=== PATIENT | male | born 1960 ===

== ENCOUNTER 2016-10-10 13:45 | Emergency (ER) | payer MEDICARE ==
[2016-10-10 14:12] VITALS: BP 140/96
--- NOTE | 2016-10-10 15:25 | UC ---
I, Oh,Sotero, scribed for Cyn Ramos DO on 10/10/16 at 1434 . Abdominal Pain Male HPI - HPI Summary HPI Summary: This 56 y/o male presents to [facility] for gradually worsening RLQ since yesterday PM. Pt reports 2 episodes of mild diarrhea this morning, but denies any fever, chills, n/v, eye goops, any congestion, or dyusria. Pt also reports dark urine, but states that he drinks a lot of caffeinated drinks on daily basis and usually has dark urine. Deep breath makes the pain worse. Bumpy car ride makes the pain worse. Pt is chronic current smoker since 14 year of age. PMHx includes COPD. PSHx includes knee surgeries. Plan of care involving transfer to [facility] and further workup to r/o appendicitis is discussed with pt, and pt is agreeable at this time. He doesn't have his own ride at this moment, and accepts the ambulance transport. - History of Current Complaint Chief Complaint: UCAbdominalPain Stated Complaint: ABD PAIN Time Seen by Provider: 10/10/16 14:20 Hx Obtained From: Patient, Medical Records Onset/Duration: Gradual Onset, Still Present Timing: Constant Severity Initially: Mild Severity Currently: Moderate Pain Intensity: 5 Location: Discrete At: RLQ - and umbilical Radiates: No Character: Sharp Aggravating Factor(s):: Deep Breaths - also bumpy car ride, foot fall Alleviating Factor(s): Nothing Associated Signs And Symptoms: Positive: Diarrhea - mild episodes x2 this morning. Negative: Fever, Cough, Back Pain, Constipation, Nausea, Vomiting - Allergies/Home Medications Allergies/Adverse Reactions: Allergies Allergy/AdvReac Type Severity Reaction Status Date / Time STORE BOUGHT FISH Allergy Severe Hives Uncoded 08/19/16 13:14 PMH/Surg Hx/FS Hx/Imm Hx Endocrine History Of: Denies: Diabetes, Dyslipidemia Cardiovascular History Of: Denies: Hypertension, Congestive Heart Failure Respiratory History Of: Reports: COPD - No medications. Denies: Asthma GI/ History Of: Denies: Gastroesophageal Reflux, Gastrointestinal Bleed, Gall Bladder Disease , Kidney Stones, Diverticulitis, Renal Disease, Urosepsis Psychological History Of: Denies: Anxiety, Depression, Bipolar Disorder Cancer History Of: Denies: Lung Cancer, Colorectal Cancer, Prostate Cancer Other History Of: Negative For: HIV, Hepatitis C - Surgical History Surgical History: Yes Surgery Procedure, Year, and Place: BILAT KNEE SURGERIES, CYST REMOVED FROM FINGER - Family History Known Family History: Positive: Hypertension Negative: Cardiac Disease - Social History Alcohol Use: None Substance Use Type: None Smoking Status (MU): Current Every Day Smoker Type: Cigarettes Amount Used/How Often: 1ppd Length of Time of Smoking/Using Tobacco: 45 years Have You Smoked in the Last Year: Yes Cessation Counseling: Patient Advised to Stop Review of Systems Constitutional: Negative Skin: Negative Eyes: Negative ENT: Negative Respiratory: Negative Cardiovascular: Negative Gastrointestinal: Abdominal Pain, Diarrhea - mild x2 this morning Motor: Negative Neurovascular: Negative Musculoskeletal: Negative Neurological: Negative Psychological: Negative All Other Systems Reviewed And Are Negative: Yes Physical Exam Triage Information Reviewed: Yes Appearance: Well-Appearing, Well-Nourished, Pain Distress - mod to severe Vital Signs: Initial Vital Signs Temp 99.8 F 10/10/16 14:04 Pulse 104 10/10/16 14:04 Resp 18 10/10/16 14:04 BP 140/96 10/10/16 14:04 Pulse Ox 100 10/10/16 14:04 Vital Signs Reviewed: Yes Eyes: Positive: Conjunctiva Clear. Negative: Discharge ENT: Positive: Hearing grossly normal Neck exam: Normal Neck: Positive: Supple Respiratory: Positive: Lungs clear, Normal breath sounds, No respiratory distress, No accessory muscle use Cardiovascular: Positive: RRR, No Murmur Abdomen Description: Positive: Distended - mild, Guarding, McBurney's Point Tenderness, Peritoneal Signs, Other: - Positive rebound. Positive for equisite tenderness at umbilical and RLQ.. Negative: CVA Tenderness (R), CVA Tenderness (L) Musculoskeletal: Positive: Strength Intact Neurological: Positive: Alert, Muscle Tone Normal Psychological: Positive: Age Appropriate Behavior Skin Exam: Normal, Other - color normal Abd Pain Male Course/Dx - Differential Dx/Clinical Impression Differential Diagnosis/HQI/PQRI: Appendicitis, Gall Bladder Disease, Renal Colic , Ureteral Stone, Urinary Tract Infection Provider Diagnoses: abd pain r/o appy - Physician Notification/Consults Discussed Patient Care With: Dr. Thomas (ERP at [facility]) at 1433 -- physical exam findings are shared. Dr. Thomas accepts the transfer. Time Discussed With Above Provider: 14:33 Instructed by Provider To: Transfer - to [place] [facility] Discharge - Discharge Plan Condition: Stable Disposition: TRANS HIGHER LVL OF CARE FAC Referrals: Non Staff,Doctor [Primary Care Provider] - The documentation as recorded by the Carter muñiz Soohyun accurately reflects the service I personally performed and the decisions made by , Cyn Ramos DO.
== END 2016-10-10 15:10 | disposition short-term general hospital (02) ==
LOC: UCEAST 13:45
DX: R10.31 Right lower quadrant pain (principal); F17.290 Nicotine dependence, other tobacco product, uncomplicated
CPT/HCPCS: 99213; G0463

== ENCOUNTER 2016-10-10 15:27 | Emergency (ER) | payer MEDICARE ==
[2016-10-10] MEDS ORDERED: HYDROmorphone INJ* 1 MG/ML CARPUJECT SYRINGE IV ONE (16:31)
[2016-10-10] MEDS ORDERED: Ondansetron INJ* 2 MG/ML VIAL IV ONE (16:31)
[2016-10-10 16:48] LABS: Hematocrit 49 % (42-52); Hemoglobin 16.1 g/dl (14.0-18.0); Mean Corpuscular HGB Conc 33 g/dl (31-36); Mean Corpuscular Hemoglobin 28 pg (27-31); Mean Corpuscular Volume 86 fL (80-94); Mean Platelet Volume 8 um3 (7.4-10.4); Red Blood Count 5.71 10^6/ul (4.0-5.4); Red Cell Distribution Width 14 % (10.5-15); White Blood Count 12.7 10^3/ul (3.5-10.8)
[2016-10-10 16:59] LABS: Albumin 4.4 g/dL (3.2-5.2); BUN/Creatinine Ratio 9.3 (8-20); C Reactive Protein 4.7 mg/L (< 5.00); Calcium 9.7 mg/dL (8.6-10.3); EGFR African American 90.6 (>60); EGFR Non-African American 70.5 (>60); Globulin 3.4 g/dL (2-4); Potassium 3.8 mmol/L (3.5-5.0); Total Bilirubin 0.5 mg/dL (0.2-1.0); Total Protein 7.8 g/dL (6.4-8.9)
[2016-10-10] MEDS ORDERED: Iohexol 300* (CONTRAST) 10 ML SDV IV ONE (17:42)
--- NOTE | 2016-10-10 19:13 | RAD ---
CLINICAL HISTORY: Right lower quadrant pain COMPARISON: None TECHNIQUE: Multiple contiguous axial CT scans were obtained of the abdomen and pelvis after the administration of intravenous contrast. Coronal and sagittal multiplanar reformations are submitted for review. Oral contrast was administered. Delayed images were obtained through the abdomen FINDINGS: LUNG BASES: There is dependent atelectasis of the lung bases. LIVER: The liver is diffusely low in attenuation compared to the spleen. There are no focal hepatic parenchymal masses. BILE DUCTS: There is no intrahepatic or extrahepatic biliary dilatation. GALLBLADDER: The gallbladder is normal, without pericholecystic inflammatory change. PANCREAS: The pancreas is normal, without mass or ductal dilatation. SPLEEN: Normal in size and appearance. UPPER GI TRACT: Evaluation of the gastrointestinal tract is limited by incomplete gastric distention. The upper GI tract is unremarkable. SMALL BOWEL AND MESENTERY: The small bowel is normal in contour, course, and caliber. There is no obstruction or dilatation. COLON: The colon is normal in contour, course, caliber. There is no pericolonic inflammatory change. There is a tubular, vermiform, hollow viscus that is blind ending, and originates from the cecum, consistent with a normal appendix. There is no periappendiceal inflammatory change. This is best seen on images 96 through 120 ADRENALS: Normal bilaterally. KIDNEYS: The kidneys are normal in shape, size, contour, and axis. There is no hydronephrosis or nephrolithiasis. BLADDER: The bladder is smooth in contour. PELVIC ORGANS: The prostate gland is normal. The seminal vesicles are symmetric. AORTA: The aorta is normal. IVC: Unremarkable LYMPH NODES: There is no lymphadenopathy by size criteria. ABDOMINAL WALL: There is no evidence for abdominal wall hernia. BONES AND SOFT TISSUES: There is unilateral pars defect on the right at L5. Mild degenerative changes are noted. OTHER: None IMPRESSION: 1. FATTY LIVER. 2. NORMAL APPENDIX. 3. 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
[2016-10-10 19:56] LABS: Urine Bacteria Absent (Absent); Urine Bilirubin Negative (Negative); Urine Glucose Negative (Negative); Urine Nitrite Negative (Negative)
[2016-10-10 20:32] VITALS: BP 142/92
--- NOTE | 2016-10-10 21:19 | ED ---
Steve Pino Matthew, scribed for Niko Foy MD on 10/10/16 at 1618 . Abdominal Pain/Male - HPI Summary HPI Summary: A 56 y/o male presents to the ED from [facility] for gradually worsening, constant, RLQ abdominal pain since yesterday. The pain is worse with movement, coughing, sneezing. Associated symptoms include diarrhea. The patient denies decreased appetite, nausea, urinary symptoms, and dysuria. SHx of bilateral knee replacement. - History of Current Complaint Stated Complaint: ABD PAIN Time Seen by Provider: 10/10/16 15:59 Hx Obtained From: Patient Onset/Duration: Gradual Onset, Lasting Hours, Still Present Timing: Constant Severity Initially: Moderate Severity Currently: Moderate Location: Discrete At: RLQ Radiates: No Aggravating Factor(s): Movement Alleviating Factor(s): Nothing Associated Signs And Symptoms: Positive: Diarrhea. Negative: Urinary Symptoms, Decreased Appetite, Nausea - Allergies/Home Medications Allergies/Adverse Reactions: Allergies Allergy/AdvReac Type Severity Reaction Status Date / Time STORE BOUGHT FISH Allergy Severe Hives Uncoded 08/19/16 13:14 PMH/Surg Hx/FS Hx/Imm Hx Endocrine/Hematology History: Denies: Hx Anticoagulant Therapy, Hx Diabetes, Hx Thyroid Disease Cardiovascular History: Denies: Hx Congestive Heart Failure, Hx Deep Vein Thrombosis, Hx Hypertension , Hx Myocardial Infarction, Hx Pacemaker/ICD Respiratory History: Reports: Hx Chronic Obstructive Pulmonary Disease (COPD) - No medications., Other Respiratory Problems/Disorders - COPD Denies: Hx Asthma, Hx Lung Cancer, Hx Pneumonia, Hx Pulmonary Embolism GI History: Denies: Hx Gall Bladder Disease, Hx Gastrointestinal Bleed, Hx Ulcer, Hx Urosepsis History: Denies: Hx Kidney Stones, Hx Renal Disease Neurological History: Denies: Hx Dementia, Hx Migraine, Hx Seizures, Hx Transient Ischemic Attacks (TIA) Psychiatric History: Denies: Hx Anxiety, Hx Depression, Hx Schizophrenia, Hx Bipolar Disorder - Surgical History Surgery Procedure, Year, and Place: BILAT KNEE SURGERIES, CYST REMOVED FROM FINGER Infectious Disease History: Denies: Traveled Outside the [place] in Last 30 Days - Family History Known Family History: Positive: Hypertension Negative: Cardiac Disease - Social History Alcohol Use: None Substance Use Type: Reports: None Smoking Status (MU): Current Every Day Smoker Type: Cigarettes Amount Used/How Often: 1ppd Length of Time of Smoking/Using Tobacco: 45 years Have You Smoked in the Last Year: Yes Review of Systems Constitutional: Negative Eyes: Negative ENT: Negative Cardiovascular: Negative Respiratory: Negative Positive: Abdominal Pain - RLQ, Diarrhea. Negative: Nausea Genitourinary: Negative Musculoskeletal: Negative Skin: Negative Neurological: Negative Psychological: Normal All Other Systems Reviewed And Are Negative: Yes Physical Exam Triage Information Reviewed: Yes Vital Signs On Initial Exam: Initial Vitals Temp Pulse Resp BP Pulse Ox 98.7 F 76 16 135/81 96 10/10/16 16:14 10/10/16 16:14 10/10/16 16:14 10/10/16 16:14 10/10/16 16:14 Vital Signs Reviewed: Yes Appearance: Positive: Pain Distress Skin: Positive: Warm, Skin Color Reflects Adequate Perfusion, Dry Head/Face: Positive: Normal Head/Face Inspection Eyes: Positive: Normal ENT: Positive: Normal ENT inspection Neck: Positive: Supple, Nontender Respiratory/Lung Sounds: Positive: Clear to Auscultation, Breath Sounds Present Cardiovascular: Positive: RRR Abdomen Description: Positive: Soft, McBurney's Point Tenderness, Other: - Mild rebound referred to the RLQ Bowel Sounds: Positive: Present Musculoskeletal: Positive: Normal Neurological: Positive: Normal Psychiatric: Positive: Normal, Affect/Mood Appropriate Diagnostics - Vital Signs Vital Signs Temp Pulse Resp BP Pulse Ox 10/10/16 20:30 97.8 F 74 16 142/92 10/10/16 18:00 56 119/78 94 10/10/16 17:30 68 122/92 94 10/10/16 17:00 66 114/79 95 10/10/16 16:36 18 10/10/16 16:30 98.7 F 70 16 123/85 95 10/10/16 16:24 67 94 10/10/16 16:14 98.7 F 76 16 135/81 96 - Laboratory Lab Results: Lab Results 10/10/16 10/10/16 10/10/16 Range/Units 16:26 16:26 16:26 WBC 12.7 H (3.5-10.8) 10^3/ul RBC 5.71 H (4.0-5.4) 10^6/ul Hgb 16.1 (14.0-18.0) g/dl Hct 49 (42-52) % MCV 86 (80-94) fL MCH 28 (27-31) pg MCHC 33 (31-36) g/dl RDW 14 (10.5-15) % Plt Count 270 (150-450) 10^3/ul MPV 8 (7.4-10.4) um3 Neut % (Auto) 66.3 (38-83) % Lymph % (Auto) 24.5 L (25-47) % Rains % (Auto) 6.7 (1-9) % Eos % (Auto) 1.3 (0-6) % Baso % (Auto) 1.2 (0-2) % Absolute Neuts (auto) 8.4 H (1.5-7.7) 10^3/ul Absolute Lymphs (auto) 3.1 (1.0-4.8) 10^3/ul Absolute Monos (auto) 0.8 (0-0.8) 10^3/ul Absolute Eos (auto) 0.2 (0-0.6) 10^3/ul Absolute Basos (auto) 0.2 (0-0.2) 10^3/ul Absolute Nucleated RBC 0.01 10^3/ul Nucleated RBC % 0.1 Sodium 137 (133-145) mmol/L Potassium 3.8 (3.5-5.0) mmol/L Chloride 105 (101-111) mmol/L Carbon Dioxide 25 (22-32) mmol/L Anion Gap 7 (2-11) mmol/L BUN 10 (6-24) mg/dL Creatinine 1.08 (0.67-1.17) mg/dL Est GFR ( Amer) 90.6 (>60) Est GFR (Non-Af Amer) 70.5 (>60) BUN/Creatinine Ratio 9.3 (8-20) Glucose 92 (70-100) mg/dL Lactic Acid 0.8 (0.5-2.0) mmol/L Calcium 9.7 (8.6-10.3) mg/dL Total Bilirubin 0.50 (0.2-1.0) mg/dL AST 18 (13-39) U/L ALT 29 (7-52) U/L Alkaline Phosphatase 69 (34-104) U/L C-Reactive Protein 4.70 (< 5.00) mg/L Total Protein 7.8 (6.4-8.9) g/dL Albumin 4.4 (3.2-5.2) g/dL Globulin 3.4 (2-4) g/dL Albumin/Globulin Ratio 1.3 (1-3) Lipase 56 (11.0-82.0) U/L Urine Color Urine Appearance Urine pH (5-9) Ur Specific Baldwin (1.010-1.030) Urine Protein (Negative) Urine Ketones (Negative) Urine Blood (Negative) Urine Nitrate (Negative) Urine Bilirubin (Negative) Urine Urobilinogen (Negative) Ur Leukocyte Esterase (Negative) Urine WBC (Auto) (Absent) Urine RBC (Auto) (Absent) Ur Squamous Epith Cells (Absent) Urine Bacteria (Absent) Urine Glucose (Negative) Urine Ascorbic Acid (Negative) 10/10/16 Range/Units 19:30 WBC (3.5-10.8) 10^3/ul RBC (4.0-5.4) 10^6/ul Hgb (14.0-18.0) g/dl Hct (42-52) % MCV (80-94) fL MCH (27-31) pg MCHC (31-36) g/dl RDW (10.5-15) % Plt Count (150-450) 10^3/ul MPV (7.4-10.4) um3 Neut % (Auto) (38-83) % Lymph % (Auto) (25-47) % Rains % (Auto) (1-9) % Eos % (Auto) (0-6) % Baso % (Auto) (0-2) % Absolute Neuts (auto) (1.5-7.7) 10^3/ul Absolute Lymphs (auto) (1.0-4.8) 10^3/ul Absolute Monos (auto) (0-0.8) 10^3/ul Absolute Eos (auto) (0-0.6) 10^3/ul Absolute Basos (auto) (0-0.2) 10^3/ul Absolute Nucleated RBC 10^3/ul Nucleated RBC % Sodium (133-145) mmol/L Potassium (3.5-5.0) mmol/L Chloride (101-111) mmol/L Carbon Dioxide (22-32) mmol/L Anion Gap (2-11) mmol/L BUN (6-24) mg/dL Creatinine (0.67-1.17) mg/dL Est GFR ( Amer) (>60) Est GFR (Non-Af Amer) (>60) BUN/Creatinine Ratio (8-20) Glucose (70-100) mg/dL Lactic Acid (0.5-2.0) mmol/L Calcium (8.6-10.3) mg/dL Total Bilirubin (0.2-1.0) mg/dL AST (13-39) U/L ALT (7-52) U/L Alkaline Phosphatase (34-104) U/L C-Reactive Protein (< 5.00) mg/L Total Protein (6.4-8.9) g/dL Albumin (3.2-5.2) g/dL Globulin (2-4) g/dL Albumin/Globulin Ratio (1-3) Lipase (11.0-82.0) U/L Urine Color Yellow Urine Appearance Clear Urine pH 5.0 (5-9) Ur Specific Baldwin > 1.060 H (1.010-1.030) Urine Protein Negative (Negative) Urine Ketones Negative (Negative) Urine Blood Negative (Negative) Urine Nitrate Negative (Negative) Urine Bilirubin Negative (Negative) Urine Urobilinogen Negative (Negative) Ur Leukocyte Esterase 3+ H (Negative) Urine WBC (Auto) 2+(11-20/hpf) H (Absent) Urine RBC (Auto) 2+(6-10/hpf) H (Absent) Ur Squamous Epith Cells Present H (Absent) Urine Bacteria Absent (Absent) Urine Glucose Negative (Negative) Urine Ascorbic Acid * H (Negative) Result Diagrams: 10/10/16 16:26 10/10/16 16:26 Lab Statement: Any lab studies that have been ordered have been reviewed, and results considered in the medical decision making process. - CT A/P CT CT Interpretation: No Acute Changes - IMPRESSION: 1. FATTY LIVER. 2. NORMAL APPENDIX. 3. 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 It was aggravated by hitting bumps in the car. He was tender in the RLQ with very mild rebound in the left which referred to the right. There was a slight leukocytocis of 12.[address] was negative. His urine was equivocal and sent for C&S. It's possible that a stone was missed on the contrasted CT and he was counseled to F/U promptly and to return of his pain worsened. - Diagnoses Provider Diagnoses: Abdominal pain Discharge - Discharge Plan Condition: Stable Disposition: HOME Patient Education Materials: Abdominal Pain (ED) Referrals: [facility] [place] PHYSICIAN REFERRAL [Outside] Additional Instructions: Please follow-up with your primary care physician. The documentation as recorded by the Steve muñiz Matthew accurately reflects the service I personally performed and the decisions made by me, Niko Foy MD.
== END 2016-10-10 20:30 | disposition home or self-care (01) ==
LOC: ED 15:27
DX: R10.31 Right lower quadrant pain (principal); F17.210 Nicotine dependence, cigarettes, uncomplicated; K76.0 Fatty (change of) liver, not elsewhere classified
CPT/HCPCS: 36415; 74177; 80053; 81003; 81015; 83605; 83690; 85025; 86140; 86703; 87086; 96374; 96375; 99213; 99282; G0463; J1170; J2405; Q9967

== ENCOUNTER 2018-09-23 10:51 | Emergency (ER) | payer MEDICAID, MEDICARE ==
[2018-09-23 10:58] VITALS: BP 133/91
--- NOTE | 2018-09-23 11:00 | UC ---
Lower Extremity/Ankle HPI - HPI Summary HPI Summary: 58 yo male presents with RIGHT leg pain. He tells me that 2 days ago he slipped on the ice and his right leg went behind him and his left leg went in front of him when he fell. Did not hit his head or have LOC. Since that time has had pain in his right lateral leg near his knee. Pain is significantly worse with weight bearing and ambulation. He has taken naproxen for his discomfort with little relief. Denies numbness or tingling. - History of Current Complaint Chief Complaint: UCLowerExtremity Stated Complaint: LEG INJURY Time Seen by Provider: 09/23/18 11:00 Hx Obtained From: Patient Onset/Duration: Sudden Onset Severity Initially: Severe Severity Currently: Severe Pain Intensity: 9 Pain Scale Used: 0-10 Numeric Aggravating Factor(s): Standing, Ambulation Alleviating Factor(s): Rest Able to Bear Weight: Yes - Allergies/Home Medications Allergies/Adverse Reactions: Allergies Allergy/AdvReac Type Severity Reaction Status Date / Time STORE BOUGHT FISH Allergy Severe Hives Uncoded 09/23/18 10:58 PMH/Surg Hx/FS Hx/Imm Hx - Additional Past Medical History Additional PMH: None Other History Of: Negative For: HIV, Hepatitis B, Hepatitis C, Anticoagulant Therapy - Surgical History Surgical History: Yes Surgery Procedure, Year, and Place: BILAT KNEE SURGERIES, CYST REMOVED FROM FINGER - Family History Known Family History: Positive: Hypertension Negative: Cardiac Disease - Social History Lives: With Family Alcohol Use: None Substance Use Type: None Smoking Status (MU): Current Every Day Smoker Type: Cigarettes Amount Used/How Often: 1ppd Length of Time of Smoking/Using Tobacco: 45 years Have You Smoked in the Last Year: Yes Review of Systems All Other Systems Reviewed And Are Negative: Yes Constitutional: Positive: Negative Skin: Positive: Negative Respiratory: Positive: Negative Cardiovascular: Positive: Negative Neurovascular: Positive: Negative Musculoskeletal: Positive: Other: - Right leg pain Neurological: Positive: Negative Psychological: Positive: Negative Physical Exam - Summary Physical Exam Summary: GENERAL: NAD. WDWN. No pain distress. SKIN: No rashes, sores, lesions, or open wounds. CHEST: No accessory muscle use. Breathing comfortably and in no distress. CV: . Pulses intact popliteal, PT, and DP. Cap refill <2seconds MSK: RIGHT LEG: TTP near fibular neck. FROM at knee, but does have pain with flexion>extension. Strength 5/5. No edema or obvious bony deformities. NTTP and FROM at ankle. NEURO: Alert. Sensations intact and symmetric B/L LEs PSYCH: Age appropriate behavior. Triage Information Reviewed: Yes Vital Signs: Initial Vital Signs Temp 98.8 F 09/23/18 10:54 Pulse 73 09/23/18 10:54 Resp 17 09/23/18 10:54 BP 133/91 09/23/18 10:54 Pulse Ox 100 09/23/18 10:54 Vital Signs Reviewed: Yes Lower Extremity Course/Dx - Course Course Of Treatment: XR: IMPRESSION: Slightly displaced fracture involving the proximal metaphysis of the right fibula. Pt was placed in a knee immobilizer and crutches provided. Advised to wear at all times and be non-weight bearing until f/u with Orthopedics. iSTOP Reference #: [id number] and okay. - Differential Dx/Diagnosis Provider Diagnosis: Fracture, fibula, proximal Discharge - Sign-Out/Discharge Documenting (check all that apply): Patient Departure All imaging exams completed and their final reports reviewed: Yes - Discharge Plan Condition: Stable Disposition: HOME Prescriptions: traMADol TAB* [Ultram*] 50 mg PO Q8H PRN #12 tab MDD 3 PRN Reason: Pain Patient Education Materials: Leg Fracture (ED) Referrals: Non Staff,Doctor [Primary Care Provider] - Kathy Price MD [Medical Doctor] - As Soon As Possible Additional Instructions: If you develop a fever, shortness of breath, chest pain, new or worsening symptoms - please call your PCP or go to the ED. Your blood pressure was high at todays visit. Please see your primary provider within 4 weeks for recheck and re-evaluation. 1) Rest, Ice, and elevate your leg as much as possible 2) Be in the knee immobilizer at all times and use the crutches to be non- weight bearing 3) Please call Orthopedics at the number below to schedule a follow up appointment - Billing Disposition and Condition Condition: STABLE Disposition: Home
== END 2018-09-23 12:20 | disposition home or self-care (01) ==
LOC: UCEAST 10:51
DX: S82.831A Other fracture of upper and lower end of right fibula, initial encounter for closed fracture (principal); F17.210 Nicotine dependence, cigarettes, uncomplicated; Z91.018 Allergy to other foods; W00.0XXA Fall on same level due to ice and snow, initial encounter; Y92.9 Unspecified place or not applicable
CPT/HCPCS: 99213; G0463